=== PATIENT | female | born 1990 | race Caucasian/White ===

== ENCOUNTER 2018-03-29 17:09 | Emergency (ER) | payer BC ==
--- NOTE | 2018-03-29 17:25 | UC ---
Back Pain HPI - HPI Summary HPI Summary: 27 yo female presents with low back pain. She tells me that over the last few months she has been having central low back pain. She has been seeing her chiropractor for this, which usually helps. About 2 weeks ago she saw her chiropractor and felt worse after adjustment. Last week saw chiropractor 3 times for her lower back due to increased pain from the visit 2 weeks ago. She has taken ibuprofen for his discomfort, which usually helps but has not helped over the last few days. She is usually active and goes to the gym regularly, but has not been able to due to her back pain. Her pain does not radiate. Is worse with movement, bending, and lifting. Pain is better with rest and not moving. Denies fever, numbness, tingling, saddle anesthesia, loss of bowel/ bladder control, dysuria, vaginal bleeding or discharge. - History of Current Complaint Stated Complaint: BACK PAIN Time Seen by Provider: 03/29/18 17:25 Hx Obtained From: Patient Onset/Duration: Gradual Onset Severity Initially: Moderate Severity Currently: Moderate Pain Intensity: 7 Pain Scale Used: 0-10 Numeric - Allergies/Home Medications Allergies/Adverse Reactions: Allergies Allergy/AdvReac Type Severity Reaction Status Date / Time morphine Allergy Hives Verified 03/29/18 17:39 naproxen Allergy Bleeding Verified 03/29/18 17:39 pecans Allergy Severe Airway Uncoded 01/30/14 20:43 Obstruction walnuts Allergy Intermediate Swelling Uncoded 01/30/14 20:43 Of Face,Lips,& Throat Home Medications: Home Medications Ibuprofen [Wal-Profen] 400 mg PO Q8HR PRN 03/29/18 [History Confirmed 03/29/18] PMH/Surg Hx/FS Hx/Imm Hx - Additional Past Medical History Additional PMH: None - Surgical History Surgical History: None - Family History Known Family History: Positive: None - Social History Occupation: Employed Full-time Lives: With Family Alcohol Use: Daily Alcohol Amount: 1-2 per night Substance Use Type: None Smoking Status (MU): Never Smoked Tobacco Review of Systems All Other Systems Reviewed And Are Negative: Yes Constitutional: Positive: Negative Skin: Positive: Negative Respiratory: Positive: Negative Cardiovascular: Positive: Negative Gastrointestinal: Positive: Negative Genitourinary: Positive: Negative Neurovascular: Positive: Negative Musculoskeletal: Positive: Other: - LBP Neurological: Positive: Negative Psychological: Positive: Negative Physical Exam - Summary Physical Exam Summary: GENERAL: NAD. WDWN. No pain distress. SKIN: No rashes, sores, lesions, or open wounds. NECK: Supple. FROM. Nontender. No lymphadenopathy. CHEST: CTAB. No r/r/w. No accessory muscle use. Breathing comfortably and in no distress. CV: RRR. Without m/r/g. Pulses intact. Cap refill <2seconds MSK: TTP over lumbar spine. NTTP over paraspinal muscles. Pain with flexion and extension of spine. Negative SLR b/l. Negative EMILY. Strength 5/5 B/L LEs including dorsiflexion and plantar flexion. FROM B/L LEs. No edema. No CVA tenderness. NEURO: Alert. Sensations intact B/L LEs L3-S1. Reflexes intact patellar and achilles PSYCH: Age appropriate behavior. Triage Information Reviewed: Yes Vital Signs: Vital Signs: Temp Pulse Resp BP Pulse Ox 98.9 F 82 18 156/97 100 03/29/18 17:19 03/29/18 17:19 03/29/18 17:19 03/29/18 17:19 03/29/18 17:19 Laboratory Tests 03/29/18 17:36 POC Urine Color Yellow POC Urine Clarity Clear POC Urine pH 6.5 POC Ur Specif [place] 1.010 POC Urine Protein Negative POC Ur Glucose (UA) Negative POC Urine Ketones Negative POC Urine Blood Trace-intact A POC Urine Nitrite Negative POC Urine Bilirubin Negative POC Urine Urobilinogen 0.2 POC U Leukocyte Esteras 1+ A Vital Signs Reviewed: Yes Back Pain Course/Dx - Course Course Of Treatment: UA with 1+ leuks, however no urinary symptoms and pain is reproducible at lower back. Low suspicion for UTI - will send for culture and treat accordingly. XR: No radiologist reading after 1800, therefore wet read by myself is negative for acute process. I suspect pt's pain is posture related and is being exacerbated by chiropractor. Advised to stop attending chiropractor and will start her with physical therapy and try flexeril for discomfort. F/u with PCP within 1 month for recheck. - Differential Dx/Diagnosis Provider Diagnosis: Low back pain Discharge - Sign-Out/Discharge Documenting (check all that apply): Patient Departure All imaging exams completed and their final reports reviewed: No - Discharge Plan Condition: Stable Disposition: HOME Prescriptions: Cyclobenzaprine TAB* [Flexeril 10 MG TAB*] 10 mg PO TID PRN #21 tab PRN Reason: Pain Patient Education Materials: Low Back Strain (ED), Lower Back Exercises (ED) Referrals: Jose Murry MD [Primary Care Provider] - 2 Weeks Additional Instructions: If you develop a fever, shortness of breath, chest pain, new or worsening symptoms - please call your PCP or go to the ED. Your blood pressure was elevated at todays visit. Please see your primary provider within 4 weeks for recheck and re-evaluation. 1) Try the flexeril around bedtime first as this may make you drowsy. If you tolerate it well and it does not make you drowsy - you can take this up to three times a day every 8 hours if needed 2) Please call Physical Therapy to set up an appointment as soon as possible 3) I suggest you hold off on seeing the chiropractor for a few weeks and try Physical Therapy instead 4) Please call your primary doctor to schedule a follow up appointment within 1 month for a recheck of your back pain - Billing Disposition and Condition Condition: STABLE Disposition: Home - Attestation Statements Provider Attestation: I was available for consult. This patient was seen by the [facility]OR[facility]. The patient was not presented to, seen by, or examined by me. -Jenifer
[2018-03-29 17:29] VITALS: BP 156/97
--- NOTE | 2018-03-30 10:04 | UC ---
- EKG/XRAY/CT Xray Comments: wet read correct Course/Dx - Diagnoses Provider Diagnoses: Low back pain Discharge - Sign-Out/Discharge Documenting (check all that apply): Post-Discharge Follow Up All imaging exams completed and their final reports reviewed: Yes - Discharge Plan Condition: Stable Disposition: HOME Prescriptions: Cyclobenzaprine TAB* [Flexeril 10 MG TAB*] 10 mg PO TID PRN #21 tab PRN Reason: Pain Patient Education Materials: Low Back Strain (ED), Lower Back Exercises (ED) Referrals: Jose Murry MD [Primary Care Provider] - 2 Weeks Additional Instructions: If you develop a fever, shortness of breath, chest pain, new or worsening symptoms - please call your PCP or go to the ED. Your blood pressure was elevated at todays visit. Please see your primary provider within 4 weeks for recheck and re-evaluation. 1) Try the flexeril around bedtime first as this may make you drowsy. If you tolerate it well and it does not make you drowsy - you can take this up to three times a day every 8 hours if needed 2) Please call Physical Therapy to set up an appointment as soon as possible 3) I suggest you hold off on seeing the chiropractor for a few weeks and try Physical Therapy instead 4) Please call your primary doctor to schedule a follow up appointment within 1 month for a recheck of your back pain - Billing Disposition and Condition Condition: STABLE Disposition: Home
--- NOTE | 2018-03-31 16:01 | UC ---
- Progress Note Progress Note: Urine culture comes back from March 29, 2018 and the preliminary shows Klebsiella pneumonia. Patient is not on any antibiotics at this time. Susceptibility is pending. Nursing to call patient and I have sent a prescription for Augmentin which should cover the infection however when the susceptibilities come back we may need to change the antibiotic. - EKG/XRAY/CT Xray Comments: wet read correct Course/Dx - Diagnoses Provider Diagnoses: Low back pain Discharge - Sign-Out/Discharge Documenting (check all that apply): Patient Departure All imaging exams completed and their final reports reviewed: Yes - Discharge Plan Condition: Stable Disposition: HOME Prescriptions: Amoxicillin/Clavulanate TAB* [Augmentin TAB 875*] 875 mg PO BID #20 tab Cyclobenzaprine TAB* [Flexeril 10 MG TAB*] 10 mg PO TID PRN #21 tab PRN Reason: Pain Patient Education Materials: Low Back Strain (ED), Lower Back Exercises (ED) Referrals: Jose Murry MD [Primary Care Provider] - 2 Weeks Additional Instructions: If you develop a fever, shortness of breath, chest pain, new or worsening symptoms - please call your PCP or go to the ED. Your blood pressure was elevated at todays visit. Please see your primary provider within 4 weeks for recheck and re-evaluation. 1) Try the flexeril around bedtime first as this may make you drowsy. If you tolerate it well and it does not make you drowsy - you can take this up to three times a day every 8 hours if needed 2) Please call Physical Therapy to set up an appointment as soon as possible 3) I suggest you hold off on seeing the chiropractor for a few weeks and try Physical Therapy instead 4) Please call your primary doctor to schedule a follow up appointment within 1 month for a recheck of your back pain - Billing Disposition and Condition Condition: STABLE Disposition: Home
== END 2018-03-29 18:30 | disposition home or self-care (01) ==
LOC: UCEAST 17:09
DX: M54.5 Low back pain (principal); Z88.4 Allergy status to anesthetic agent; Z91.018 Allergy to other foods; Z91.09 Other allergy status, other than to drugs and biological substances
CPT/HCPCS: 72110; 81003; 87077; 87086; 87186; 99202; G0463